=== PATIENT | female | born 1970 | race Caucasian/White ===

== ENCOUNTER 2023-06-05 23:02 | Emergency (ER) | payer BC, SELFPAY ==
--- NOTE | 2023-06-05 23:05 | XRR_ITS ---
PROCEDURE INFORMATION: Exam: XR Chest Exam date and time: 06/05/2023 11:18 PM Age: 53 years old Clinical indication: Chest wall pain; Additional info: Cp TECHNIQUE: Imaging protocol: Radiologic exam of the chest. Views: 1 view. COMPARISON: No relevant prior studies available. FINDINGS: Lungs: Right lower lobe subsegmental atelectasis versus minimal infiltrate. Pleural spaces: Unremarkable. No pleural effusion. No pneumothorax. Heart/Mediastinum: Cardiomegaly. Bones/joints: Unremarkable. XR/XR chest 1V portable [id number] IMPRESSION: 1. Cardiomegaly. 2. Right lower lobe subsegmental atelectasis versus minimal infiltrate.
--- NOTE | 2023-06-05 23:06 | ECG_ITS ---
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 Measurements Intervals [place] Rate: 64 P: 31 [place]: 184 QRS: -64 QRSD: 113 T: 58 QT: 334 QTc: 346 Interpretive Statements SINUS RHYTHM PATTERN CONSISTENT WITH PULMONARY DISEASE INCOMPLETE RIGHT BUNDLE BRANCH BLOCK [90+ ms QRS DURATION, TERMINAL R IN V1/V2, 40+ ms S IN I/aVL/V4/V5/V6] LEFT ANTERIOR FASCICULAR BLOCK [QRS AXIS <= -45, QR IN I, RS IN II] MODERATE ST DEPRESSION [0.05+ mV ST DEPRESSION] No previous ECG available for comparison Electronically Signed On 06-06-2023 8:09:36 CDT by Jennifer Dorman M.D. [id number]
[2023-06-05 23:12] VITALS: BP 151/110; PULSE 62; RESP 18; TEMP 36.8; O2SAT 98; BMI 31.1
[2023-06-05 23:25] VITALS: BP 149/91; PULSE 63; RESP 16; O2SAT 98
[2023-06-05 23:27] LABS: Basophils % 0.7 %; Eosinophils # 0.1 10^3/uL (0.0-0.8); Eosinophils % 1.2 %; Hematocrit 41.9 % (37.0-47.0); Hemoglobin 13.8 g/dL (11.5-15.3); Lymphocytes # 2.7 10^3/uL (0.8-4.8); Lymphocytes % 47.4 %; Mean Corpuscular HGB Conc 32.9 g/dL (30.0-36.0); Mean Corpuscular Hemoglobin 29.1 pg (28.0-34.0); Mean Corpuscular Volume 88.2 fl (81-99); Mean Platelet Volume 8.7 fL (7.4-10.4); Monocytes # 0.5 10^3/uL (0.2-0.9); Monocytes % 8.1 %; Neutrophils # 2.46 10^3/uL (1.8-7.7); Neutrophils % 42.6 %; Nucleated Red Blood Cells % 0 %; Platelet Count 316 10^3/cmm (130-400); Red Blood Count 4.75 10^6/uL (4.1-5.3); White Blood Count 5.8 10^3/uL (4.0-10.0)
--- NOTE | 2023-06-05 23:29 | USR_ITS ---
PROCEDURE INFORMATION: Exam: US Duplex Left Lower Extremity Veins, Limited Exam date and time: 06/05/2023 11:47 PM Age: 53 years old Clinical indication: Leg, lower; Patient HX: Left leg shooting pain x 45 minutes. No history of dvt per patient. ; Additional info: Leg pain TECHNIQUE: Imaging protocol: Real-time duplex ultrasound of the left extremity with 2-D mena scale, color Doppler flow and spectral waveform analysis including responses to compression and other maneuvers (when performed) with image documentation. Limited exam focused on the left lower extremity veins. COMPARISON: No relevant prior studies available. FINDINGS: Left deep veins: Unremarkable. The common femoral, femoral, proximal profunda femoral and popliteal veins are patent without thrombus. Normal Doppler waveforms. Normal compressibility and/or augmentation response. Left superficial veins: Unremarkable. Saphenofemoral junction is patent without thrombus. Soft tissues: Unremarkable. US/[place] [id number] IMPRESSION: No evidence of deep vein thrombosis.
--- NOTE | 2023-06-05 23:37 | ED_ITS ---
HPI - Chest Pain General: Chief Complaint: Chest Pain Stated Complaint: cp Time Seen by Provider: 06/05/23 23:16 Source: patient Mode of arrival: ambulatory Limitations: no limitations History of Present Illness: 53-year-old female who states that she has been having chest pain over the last 30 minutes states its been in the left side of her chest and right-sided chest and having some neck pain. States she been riding in a car for 10 days she had some soreness in her neck. States she also had some left leg pain and some mild dyspnea she is concerned about a possible blood clot no history of heart disease besides A-fib. Denies any cough or fever Associated symptoms: Reports dyspnea; Deny abdominal pain, fever(s), nausea or vomiting Review of Systems Const: Denies: fever(s) or chills ENMT: Denies: throat pain or dental pain Card: Reports: chest pain Resp: Reports: dyspnea GI: Denies: abdominal pain, nausea, vomiting or diarrhea Musc: Denies: neck pain or back pain Skin/Breast: Denies: rash Neuro: Denies: headache(s) Physical Exam Const: COMMON NORMALS: no acute distress, patient oriented x3 and healthy appearing HENMT: COMMON NORMALS: normocephalic and atraumatic HEAD & SCALP: norm ocephalic and atraumatic Eye: COMMON NORMALS: Equal, round and reactive pupils present and EOMs intact bilaterally PUPIL: Yes Equal, round and reactive pupils present Neck/C-Spine: COMMON NORMALS: full ROM and supple Chest: COMMONS NORMALS: normal inspection of the chest and normal palpation of entire chest wall Resp: COMMON NORMALS: normal respiratory effort, No retractions, No use of accessory muscles and clear to auscultation bilaterally AUSCULTATION: clear to auscultation bilaterally Cardio: COMMON NORMALS: regular rate, regular rhythm and No murmurs present (Cardio) RATE: regular rate RHYTHM: regular rhythm GI: COMMON NORMALS: Normal to inspection, nondistended, normoactive bowel sounds present, Soft to palpation, non-tender and no masses PALPATION: Yes Soft to palpation Extremity: COMMON NORMALS: normal to inspection and full ROM Neuro: COMMON NORMALS: patient oriented x3, moves all extremities and no focal motor deficits Psych: COMMON NORMALS: mental status grossly normal, Normal thought process present and cooperative THOUGHT PROCESS: Normal thought process present Skin: COMMON NORMALS: no rashes or lesions noted and no wounds GENERAL SKIN EXAM: no rashes or lesions noted Course Vital Signs: Vital signs: Vital Signs Temperature 98.3 F 06/05/23 23:12 Pulse Rate 54 L 06/06/23 01:00 Respiratory Rate 16 06/06/23 01:00 Blood Pressure 106/66 06/06/23 01:00 Pulse Oximetry 98 06/06/23 01:00 MDM - Chest Pain Medical Decision Making Patient presents here with chest neck pain is likely muscular in nature she does have some tenderness to touch her troponins here are normal D-dimer is negative no signs of pulmonary embolism ultrasound of her leg was normal no signs of DVT she well-appearing here she is stable for discharge she is to follow-up with her PCP and return if worsening. Medical Records I reviewed the patient's medical records. Lab Data I reviewed the patient's lab results. 06/05/23 23:19 06/05/23 23:19 Radiology Impressions Chest X-Ray 06/05/23 23:05 IMPRESSION: 1. Cardiomegaly. 2. Right lower lobe subsegmental atelectasis versus minimal infiltrate. Venous Duplex 06/05/23 23:29 IMPRESSION: No evidence of deep vein thrombosis. Laboratory Results WBC 5.8 10^3/uL (4.0-10.0) 06/05/23 23:19 RBC 4.75 10^6/uL (4.1-5.3) 06/05/23 23:19 Hgb 13.8 g/dL (11.5-15.3) 06/05/23 23:19 Hct 41.9 % (37.0-47.0) 06/05/23 23:19 MCV 88.2 fl (81-99) 06/05/23 23:19 MCH 29.1 pg (28.0-34.0) 06/05/23 23:19 MCHC 32.9 g/dL (30.0-36.0) 06/05/23 23:19 RDW 12.0 % (12.1-15.1) L 06/05/23 23:19 Plt Count 316 10^3/cmm (130-400) 06/05/23 23:19 MPV 8.7 fL (7.4-10.4) 06/05/23 23:19 Neut % (Auto) 42.6 % 06/05/23 23:19 Lymph % (Auto) 47.4 % 06/05/23 23:19 [place] % (Auto) 8.1 % 06/05/23 23:19 Eos % (Auto) 1.2 % 06/05/23 23:19 Baso % (Auto) 0.7 % 06/05/23 23:19 Neut # (Auto) 2.46 10^3/uL (1.8-7.7) 06/05/23 23:19 Lymph # (Auto) 2.7 10^3/uL (0.8-4.8) 06/05/23 23:19 [place] # (Auto) 0.5 10^3/uL (0.2-0.9) 06/05/23 23:19 Eos # (Auto) 0.1 10^3/uL (0.0-0.8) 06/05/23 23:19 Baso # (Auto) 0.0 10^3/uL (0.0-0.1) 06/05/23 23:19 Nucleated RBC % (auto) 0 % 06/05/23 23:19 Nucleated RBCs # 0.0 /100WBC 06/05/23 23:19 PT 12.50 SECONDS (12.1-14.9) 06/05/23 23:19 PT Cancelled 06/05/23 23:19 INR 0.91 (0.8-1.2) 06/05/23 23:19 INR Cancelled 06/05/23 23:19 D-Dimer 0.39 ug/mIFEU (0-0.59) 06/05/23 23:19 Sodium 141 mmol/L (136-145) 06/05/23 23:19 Potassium 4.3 mmol/L (3.5-5.1) 06/05/23 23:19 Chloride 105 mmol/L (98-107) 06/05/23 23:19 Carbon Dioxide 24 mmol/L (22-29) 06/05/23 23:19 Anion Gap 16.3 (5-19) 06/05/23 23:19 BUN 18 mg/dL (6-20) 06/05/23 23:19 Creatinine 0.8 mg/dL (0.5-0.9) 06/05/23 23:19 GFR Calculation 74.7 mL/min (90-130) L 06/05/23 23:19 Glucose 120 mg/dL (65-115) H 06/05/23 23:19 Calculated Osmolality 295 mOsm/kg (285-295) 06/05/23 23:19 Calcium 9.7 mg/dL (8.5-10.5) 06/05/23 23:19 Total Bilirubin 0.3 mg/dL (0.15-1.2) 06/05/23 23:19 AST 23 U/L (0-32) 06/05/23 23:19 ALT 22 U/L (0-33) 06/05/23 23:19 Alkaline Phosphatase 70 U/L (35-105) 06/05/23 23:19 Troponin T Baseline 6 ng/L (0-10) 06/05/23 23:19 Troponin T 120 Minute 6.00 ng/L (0-10) 06/06/23 00:54 Delta Troponin T 0 ABS# (0-10) 06/06/23 00:54 Total Protein 7.4 g/dL (6.6-8.7) 06/05/23 23:19 Albumin 4.4 g/dL (3.5-5.2) 06/05/23 23:19 Globulin 3.0 g/dL (1.3-4.6) 06/05/23 23:19 Lipase 95 U/L (13-60) H 06/05/23 23:19 EKG Data EKG 1: I personally reviewed and interpreted this EKG as follows: EKG interpretation date: 06/05/23 EKG interpretation time: 23:06 Interpretation: nsr hr [address] or t wave abnormalities qrs 113 qtc 343 Discharge Plan Discharge Patient Disposition: Home Clinical Impression: Chest pain Condition: Stable Discharge Orders: Discharge ED (Routine); Ordered 06/06/23 Ordered By: Clemente Gustafson Discharge Diet: Advance as tolerated Discharge Activity: Resume usual activity Patient Instructions: Chest Pain (ED) Coding Level of Care Code ED Hot Car Operator for Jumanag Prasanth
[2023-06-05 23:42] LABS: INR 0.91 (0.8-1.2)
[2023-06-05 23:44] LABS: D Dimer 0.39 ug/mIFEU (0-0.59)
[2023-06-05 23:56] LABS: Alanine Aminotransferase 22 U/L (0-33); Albumin Level 4.4 g/dL (3.5-5.2); Alkaline Phosphatase 70 U/L (35-105); Anion Gap 16.3 (5-19); Aspartate Amino Transferase 23 U/L (0-32); Blood Urea Nitrogen 18 mg/dL (6-20); Calcium 9.7 mg/dL (8.5-10.5); Carbon Dioxide 24 mmol/L (22-29); Chloride 105 mmol/L (98-107); Glomerular Filtration Rate 74.7 mL/min (90-130); Glucose 120 mg/dL (65-115); Lipase 95 U/L (13-60); Osmolality Calculated 295 mOsm/kg (285-295); Potassium 4.3 mmol/L (3.5-5.1); Sodium 141 mmol/L (136-145); Total Bilirubin 0.3 mg/dL (0.15-1.2); Total Protein 7.4 g/dL (6.6-8.7); Troponin(5th) Baseline 6 ng/L (0-10)
[2023-06-05 23:59] VITALS: BP 112/81; PULSE 56; RESP 16; O2SAT 97
[2023-06-06 00:35] VITALS: BP 102/66; PULSE 53; RESP 16; O2SAT 96
[2023-06-06 01:00] VITALS: BP 106/66; PULSE 54; RESP 16; O2SAT 98
--- NOTE | 2023-06-06 01:11 | ECG_ITS ---
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 Measurements Intervals [place] Rate: 51 P: 33 [place]: 197 QRS: -40 QRSD: 114 T: 72 QT: 456 QTc: 424 Interpretive Statements SINUS BRADYCARDIA LEFT AXIS DEVIATION [QRS AXIS < -30] PATTERN CONSISTENT WITH PULMONARY DISEASE MODERATE INTRAVENTRICULAR CONDUCTION DELAY [110+ ms QRS DURATION] MODERATE ST DEPRESSION [0.05+ mV ST DEPRESSION] Compared to ECG 06/05/2023 23:06:56 Left-axis deviation now present Intraventricular conduction delay now present Sinus rhythm no longer present Incomplete right bundle-branch block no longer present Left anterior fascicular block no longer present ST (T wave) deviation still present Electronically Signed On 06-06-2023 8:11:07 CDT by Jennifer Dorman M.D. [id number]
[2023-06-06 01:16] LABS: Troponin 5 2HR Delta 0 ABS# (0-10)
[2023-06-06 01:28] VITALS: BP 106/66; PULSE 54; RESP 16; TEMP 36.8; O2SAT 98
== END 2023-06-06 01:29 | disposition home or self-care (01) ==
PROVIDERS: Emergency Provider Emergency Medicine
DX: R07.9 Chest pain, unspecified (principal)
CPT/HCPCS: 36415; 71045; 80053; 83690; 84484; 85025; 85378; 85610; 93005; 93971; 99285